=== PATIENT | female | born 1985 | race African-American/Black ===

== ENCOUNTER 2022-09-22 13:18 | Observation (INO) | payer OTHER ==
[2022-09-22] MEDS ORDERED: ASPIRIN 81 MG CHEWABLE TABLETS PO ONE (14:44)
[2022-09-22] MEDS ORDERED: LACTATED RINGERS SOLUTION 1000 ML INFUS.BAG IV ONE (14:45)
[2022-09-22] MEDS ORDERED: MECLIZINE HCL 25 MG TABLET (FP) PO ONE (14:45)
[2022-09-22] MEDS ORDERED: MECLIZINE HCL 25 MG TABLET (FP) ONE ×2 (15:01→15:19)
[2022-09-22] MEDS ORDERED: ASPIRIN 81 MG CHEWABLE TABLETS ONE ×2 (15:01→15:19)
[2022-09-22 15:30] LABS: PH,URINE 6.5 (5.0-8.0); URINE APPEARANCE CLEAR; URINE BILIRUBIN NEGATIVE (NEGATIVE); URINE COLOR YELLOW; URINE GLUCOSE (UA) NEGATIVE (NEGATIVE); URINE KETONE TRACE (NEGATIVE); URINE LEUK ESTERASE NEGATIVE (NEGATIVE); URINE NITRITE NEGATIVE (NEGATIVE); URINE PROTEIN TRACE (NEGATIVE)
[2022-09-22 15:31] LABS: EOS % 1.6 % (0-4.5); HEMATOCRIT 25.4 % (32.4-45.2); HEMOGLOBIN 7.3 GM/dL (10.7-15.3); LYMPH % 39.9 % (8-40); MCHC 28.9 g/dl (32.0-36.0); MEAN CELL VOLUME 60.3 fl (80-96); MEAN PLT VOLUME 8.5 fl (7.5-11.1); MONO % 8.1 % (3.8-10.2); NEUT % 49.4 % (42.8-82.8); PLATELET COUNT 263 10^3/uL (134-434); RBC 4.21 M/mm3 (3.60-5.2); RDW 18.9 % (11.6-15.6); WHITE BLOOD COUNT 4.8 K/mm3 (4.0-10.0)
[2022-09-22 15:33] LABS: MCH 17.4 pg (25.7-33.7)
[2022-09-22 15:52] LABS: ALBUMIN 3.7 g/dl (3.4-5.0); BLOOD UREA NITROGEN 12.8 mg/dL (7-18); CALCIUM 9.1 mg/dL (8.5-10.1)
[2022-09-22 15:56] LABS: CREATININE 0.7 mg/dL (0.55-1.3)
[2022-09-22 15:58] LABS: BILIRUBIN,TOTAL 0.4 mg/dL (0.2-1); TOT PROT 7.8 g/dl (6.4-8.2)
[2022-09-22] MEDS ORDERED: IRON SUCROSE INJECTION 200 MG in SODIUM CHLORIDE 90 ML IVPB ONE (19:11)
[2022-09-23] MEDS ORDERED: ACETAMINOPHEN 1000 MG/100 ML BAG IVPB ONE (00:09)
[2022-09-23 02:05] VITALS: RESP 20
[2022-09-23 03:10] VITALS: BMI 21.8
[2022-09-23] MEDS ORDERED: LOSARTAN 50MG/HCTZ 12.5MG 1 TAB PO SCH (10:30)
[2022-09-23] MEDS ORDERED: IRON SUCROSE INJECTION 200 MG in SODIUM CHLORIDE 90 ML IVPB ONE (11:00)
[2022-09-23 11:13] LABS: BASO % 0.5 % (0-2.0); EOS % 2.9 % (0-4.5); HEMATOCRIT 28.3 % (32.4-45.2); HEMOGLOBIN 8.6 GM/dL (10.7-15.3); LYMPH % 37.6 % (8-40); MCHC 30.3 g/dl (32.0-36.0); MEAN CELL VOLUME 62.4 fl (80-96); MEAN PLT VOLUME 8.5 fl (7.5-11.1); MONO % 7.8 % (3.8-10.2); NEUT % 51.2 % (42.8-82.8); PLATELET COUNT 239 10^3/uL (134-434); RBC 4.53 M/mm3 (3.60-5.2); RDW 21.4 % (11.6-15.6); WHITE BLOOD COUNT 4.6 K/mm3 (4.0-10.0)
[2022-09-23 11:19] LABS: MCH 18.9 pg (25.7-33.7)
[2022-09-23 11:23] LABS: ALBUMIN 3.4 g/dl (3.4-5.0); BLOOD UREA NITROGEN 7.6 mg/dL (7-18); PHOSPHOROUS 2.6 mg/dL (2.5-4.9)
[2022-09-23 11:24] LABS: BILIRUBIN,TOTAL 0.3 mg/dL (0.2-1); TOT PROT 7.2 g/dl (6.4-8.2)
[2022-09-23 11:26] LABS: CREATININE 0.7 mg/dL (0.55-1.3)
[2022-09-23 16:22] VITALS: BP 142/72; PULSE 78; TEMP 98.3
[2022-09-24] MEDS ORDERED: LOSARTAN 50MG/HCTZ 12.5MG 1 TAB PO SCH (07:00)
== END 2022-09-23 17:22 | disposition home or self-care (01) ==
LOC: JER 13:18 → JERBED 17:29 → J8W 22:02
PROVIDERS: ADMIT Internal Medicine; ATTEND Nurse Practitioner Family
PROC: 30233N1 Transfusion of Nonautologous Red Blood Cells into Peripheral Vein, Percutaneous Approach (ICD-10-PCS; principal; 2022-09-22)
PROC: 3E0337Z Introduction of Electrolytic and Water Balance Substance into Peripheral Vein, Percutaneous Approach (ICD-10-PCS; 2022-09-22)
PROC: 3E033GC Introduction of Other Therapeutic Substance into Peripheral Vein, Percutaneous Approach (ICD-10-PCS; 2022-09-22)
DX: D50.9 Iron deficiency anemia, unspecified (principal); I10 Essential (primary) hypertension; R42 Dizziness and giddiness; Z87.891 Personal history of nicotine dependence
CPT/HCPCS: 36415; 36430; 71045-TC-FY; 76830-TC; 80053; 81003; 82728; 83540; 83550; 83735; 84100; 84484; 85025; 86850; 86900; 86901; 86922; 87086; 93005; 93010; 93308; 96365; 96366; 99285-25; C9803-CS; G0378; J1756; P9058; U0003; U0005

== ENCOUNTER 2022-11-04 18:44 | Observation (INO) | payer OTHER ==
[2022-11-04 21:14] LABS: EOS % 6.7 % (0-4.5); HEMATOCRIT 25.2 % (32.4-45.2); HEMOGLOBIN 7.8 GM/dL (10.7-15.3); LYMPH % 28.9 % (8-40); MCH 20.9 pg (25.7-33.7); MCHC 30.9 g/dl (32.0-36.0); MEAN CELL VOLUME 67.6 fl (80-96); MEAN PLT VOLUME 7.3 fl (7.5-11.1); MONO % 7.7 % (3.8-10.2); NEUT % 55.7 % (42.8-82.8); PLATELET COUNT 405 10^3/uL (134-434); RBC 3.73 M/mm3 (3.60-5.2); RDW 25.3 % (11.6-15.6); WHITE BLOOD COUNT 6.4 K/mm3 (4.0-10.0)
[2022-11-04 21:19] LABS: INR 1.08 (0.83-1.09); PROTHROMBIN TIME (PATIENT) 12.4 SEC (9.7-13.0)
[2022-11-04 21:21] LABS: ACTIVATED PTT 35.3 SECONDS (25.2-36.5)
[2022-11-04 21:26] LABS: CALCIUM 9.2 mg/dL (8.5-10.1)
[2022-11-04 21:27] LABS: ALBUMIN 3.9 g/dl (3.4-5.0); BLOOD UREA NITROGEN 8.6 mg/dL (7-18)
[2022-11-04 21:30] LABS: CREATININE 0.8 mg/dL (0.55-1.3)
[2022-11-04 21:31] LABS: BILIRUBIN,TOTAL 0.7 mg/dL (0.2-1); TOT PROT 7.8 g/dl (6.4-8.2)
[2022-11-04 22:33] LABS: ANISOCYTOSIS 3+; MACROCYTOSIS 1+; OVALOCYTE 1+; TEAR DROP CELLS 1+
[2022-11-04] MEDS ORDERED: SODIUM CHLORIDE 0.9% 500 ML INFUS.BAG IV ONE (23:57)
[2022-11-05 04:31] VITALS: BMI 23.3
[2022-11-05] MEDS ORDERED: MELATONIN 5 MG TABLETS PO ONE (04:55)
[2022-11-05] MEDS ORDERED: POLYETHYLENE GLYCOL (HEALTHYLAX) 3350 17 GM PACKET PO ONE (05:30)
[2022-11-05] MEDS: DOCUSATE SODIUM 100 MG CAPSULE (FP) PO SCH ×2 (06:30→14:24)
[2022-11-05] MEDS: PHENYLEPHRINE HCL/COCOA BUTTER 1 EACH SUPP.RECT RC SCH ×2 (06:34→09:22)
[2022-11-05] MEDS ORDERED: LOSARTAN 50MG/HCTZ 12.5MG 1 TAB PO SCH (07:00)
[2022-11-05] MEDS ORDERED: IRON SUCROSE INJECTION 200 MG in SODIUM CHLORIDE 90 ML IVPB ONE ×2 (07:45→12:00)
[2022-11-05] MEDS ORDERED: FERROUS SO4 325 MG TABLET (FP) PO SCH (10:00)
[2022-11-05 10:16] VITALS: RESP 18
[2022-11-05 11:35] LABS: BASO % 0.7 % (0-2.0); EOS % 12.3 % (0-4.5); HEMATOCRIT 29.4 % (32.4-45.2); HEMOGLOBIN 9.2 GM/dL (10.7-15.3); LYMPH % 28.8 % (8-40); MCH 22.5 pg (25.7-33.7); MCHC 31.3 g/dl (32.0-36.0); MEAN CELL VOLUME 71.7 fl (80-96); MEAN PLT VOLUME 8.2 fl (7.5-11.1); MONO % 8.5 % (3.8-10.2); NEUT % 49.7 % (42.8-82.8); PLATELET COUNT 335 10^3/uL (134-434); RDW 27.2 % (11.6-15.6); WHITE BLOOD COUNT 6.1 K/mm3 (4.0-10.0)
[2022-11-05 12:10] LABS: ALBUMIN 3.2 g/dl (3.4-5.0); BLOOD UREA NITROGEN 8.5 mg/dL (7-18); CALCIUM 8.6 mg/dL (8.5-10.1); MAGNESIUM 2.2 mg/dL (1.8-2.4)
[2022-11-05 12:13] LABS: CREATININE 0.6 mg/dL (0.55-1.3)
[2022-11-05 12:15] LABS: BILIRUBIN,TOTAL 1.4 mg/dL (0.2-1); TOT PROT 6.5 g/dl (6.4-8.2)
[2022-11-05 13:31] VITALS: BP 136/82; PULSE 82; TEMP 98.2
[2022-11-05] MEDS ORDERED: MELATONIN 5 MG TABLETS PO SCH (22:00)
== END 2022-11-05 18:56 | disposition home or self-care (01) ==
LOC: JER 18:44 → JERBED 23:03 → J6S 11-05 04:40
PROVIDERS: ADMIT Internal Medicine; ATTEND Internal Medicine
PROC: 3E033GC Introduction of Other Therapeutic Substance into Peripheral Vein, Percutaneous Approach (ICD-10-PCS; principal; 2022-11-04)
PROC: 3E0337Z Introduction of Electrolytic and Water Balance Substance into Peripheral Vein, Percutaneous Approach (ICD-10-PCS; 2022-11-04)
PROC: 30233N1 Transfusion of Nonautologous Red Blood Cells into Peripheral Vein, Percutaneous Approach (ICD-10-PCS; 2022-11-04)
DX: D64.9 Anemia, unspecified (principal); I10 Essential (primary) hypertension; D21.9 Benign neoplasm of connective and other soft tissue, unspecified; Z72.0 Tobacco use; I34.0 Nonrheumatic mitral (valve) insufficiency
CPT/HCPCS: 36415; 36430; 80053; 82728; 83540; 83550; 83735; 84100; 84484; 84703; 85025; 85610; 85730; 86850; 86900; 86901; 86922; 93005; 93010; 96361; 96365; 99285-25; C9803-CS; G0378; J1756; P9058; U0003; U0005

== ENCOUNTER 2023-05-10 21:07 | Emergency (ER) | payer OTHER ==
[2023-05-10 21:18] VITALS: BP 122/76; PULSE 91; RESP 20; TEMP 98.2; BMI 22.4
[2023-05-10 22:47] LABS: BASO % 0.5 % (0-2.0); EOS % 3.9 % (0-4.5); HEMATOCRIT 33.3 % (32.4-45.2); HEMOGLOBIN 10.6 GM/dL (10.7-15.3); LYMPH % 38.6 % (8-40); MCH 23.9 pg (25.7-33.7); MCHC 31.8 g/dl (32.0-36.0); MEAN PLT VOLUME 7.7 fl (7.5-11.1); PLATELET COUNT 409 10^3/uL (134-434); RBC 4.44 M/mm3 (3.60-5.2); RDW 17.4 % (11.6-15.6); WHITE BLOOD COUNT 5.2 K/mm3 (4.0-10.0)
[2023-05-10 22:52] LABS: EPI CELLS >36 /uL (0-25.1); HYALINE CASTS 6 /uL (0-3.1); URINE APPEARANCE CLEAR; URINE BACTERIA 401 /uL (0-1359); URINE BILIRUBIN 1+ (NEGATIVE); URINE COLOR DK YELLOW; URINE GLUCOSE (UA) NEGATIVE (NEGATIVE); URINE KETONE 2+ (NEGATIVE); URINE LEUK ESTERASE NEGATIVE (NEGATIVE); URINE NITRITE NEGATIVE (NEGATIVE); URINE PROTEIN 1+ (NEGATIVE); URINE RBC 13 /uL (0-23.9); URINE WBC 21 /uL (0-25.8)
[2023-05-10 23:06] LABS: POTASSIUM 3.9 mmol/L (3.5-5.1)
[2023-05-10 23:09] LABS: ALBUMIN 4.1 g/dl (3.4-5.0); BLOOD UREA NITROGEN 9.5 mg/dL (7-18); CALCIUM 9.3 mg/dL (8.5-10.1)
[2023-05-10 23:13] LABS: CREATININE 0.8 mg/dL (0.55-1.3)
[2023-05-10 23:14] LABS: BILIRUBIN,TOTAL 0.3 mg/dL (0.2-1)
== END 2023-05-11 01:32 | disposition home or self-care (01) ==
LOC: JER 21:07
DX: R53.83 Other fatigue (principal); R00.2 Palpitations; R07.89 Other chest pain; R68.89 Other general symptoms and signs; D50.9 Iron deficiency anemia, unspecified; D75.89 Other specified diseases of blood and blood-forming organs; R71.8 Other abnormality of red blood cells
CPT/HCPCS: 36415; 80053; 81003; 82962; 84484; 84703; 85025; 86850; 86900; 86901; 93005; 93010; 99284-25

== ENCOUNTER 2023-09-19 09:38 | Emergency (ER) | payer OTHER ==
[2023-09-19 10:36] VITALS: TEMP 98; BMI 21.6
[2023-09-19] MEDS ORDERED: ACETAMINOPHEN 1000 MG/100 ML BAG IVPB ONE (11:20)
[2023-09-19] MEDS ORDERED: ACETAMINOPHEN INJECTION 100 ML IVPB ONE (11:49)
[2023-09-19 12:33] LABS: BASO % 0.7 % (0-2.0); EOS % 4.8 % (0-4.5); HEMOGLOBIN 9.1 GM/dL (10.7-15.3); LYMPH % 12.9 % (8-40); MCH 20.2 pg (25.7-33.7); MCHC 30.5 g/dl (32.0-36.0); MEAN CELL VOLUME 66.2 fl (80-96); MEAN PLT VOLUME 7.8 fl (7.5-11.1); MONO % 7.7 % (3.8-10.2); NEUT % 73.9 % (42.8-82.8); PLATELET COUNT 263 10^3/uL (134-434); RBC 4.52 M/mm3 (3.60-5.2); RDW 21.4 % (11.6-15.6); WHITE BLOOD COUNT 8.8 K/mm3 (4.0-10.0)
[2023-09-19 12:55] LABS: POTASSIUM 3.4 mmol/L (3.5-5.1)
[2023-09-19 12:58] LABS: CALCIUM 8.5 mg/dL (8.5-10.1)
[2023-09-19 12:59] LABS: ALBUMIN 3.4 g/dl (3.4-5.0); BLOOD UREA NITROGEN 5.3 mg/dL (7-18)
[2023-09-19 13:02] LABS: CREATININE 0.6 mg/dL (0.55-1.3)
[2023-09-19 13:03] LABS: BILIRUBIN,TOTAL 0.8 mg/dL (0.2-1); TOT PROT 7.2 g/dl (6.4-8.2)
[2023-09-19 14:24] VITALS: BP 134/81; PULSE 93; RESP 18
[2023-09-19 14:52] LABS: ANISOCYTOSIS 2+; MACROCYTOSIS 0; OVALOCYTE 2+; TARGET CELLS 1+; TEAR DROP CELLS 2+
== END 2023-09-19 14:24 | disposition home or self-care (01) ==
LOC: JER 09:38
PROC: 3E033NZ Introduction of Analgesics, Hypnotics, Sedatives into Peripheral Vein, Percutaneous Approach (ICD-10-PCS; principal; 2023-09-19)
DX: R51.9 Headache, unspecified (principal); I10 Essential (primary) hypertension; R42 Dizziness and giddiness; R09.81 Nasal congestion
CPT/HCPCS: 36415; 80053; 84484; 85025; 86850; 86900; 86901; 93005; 93010; 99284-25